=== PATIENT | male | born 1995 | race Caucasian/White ===

== ENCOUNTER 2018-05-21 15:29 | Observation (INO) | payer OTHER ==
[2018-05-21] MEDS ORDERED: ROPIVACAINE 0.5 % 30 ML VIAL (17:15)
[2018-05-21] MEDS ORDERED: MIDAZOLAM 1 MG/ML 2 ML INJ (17:17)
[2018-05-21] MEDS ORDERED: PROPOFOL 20 ML (17:41)
[2018-05-21] MEDS: POLYMYXIN/BACITRACIN 1L IRRIG (18:35)
[2018-05-21] MEDS ORDERED: DEXAMETHASONE 4 MG/ML 5 ML INJ (18:37)
[2018-05-21] MEDS ORDERED: ONDANSETRON 4 MG INJ (18:38)
[2018-05-21] MEDS ORDERED: FENTAnyl 50 MCG/ML VIAL (20:43)
[2018-05-21] MEDS ORDERED: LABETALOL HCL 20MG INJ (21:02)
[2018-05-21] MEDS ORDERED: GLYCOPYRROLATE 0.4 MG INJ (21:59)
[2018-05-21] MEDS ORDERED: NEOSTIGMINE 3 MG/3 ML SYRINGE (21:59)
[2018-05-21] MEDS ORDERED: CEFAZOLIN 1 GM INJ (21:59)
[2018-05-21] MEDS ORDERED: KETOROLAC 30 MG INJ (22:12)
[2018-05-21] MEDS: POVIDONE IODINE 10% 28.4 GM OINT (22:25)
[2018-05-21] MEDS: ROPIVACAINE 0.5 % 30 ML VIAL (22:25)
[2018-05-21] MEDS ORDERED: HYDROmorphONE 0.2 MG/ML PCA (22:51)
[2018-05-21] MEDS: METOCLOPRAMIDE 10 MG INJ IV (22:55)
[2018-05-21] MEDS: FENTAnyl 50 MCG/ML VIAL IV (22:56)
[2018-05-21] MEDS ORDERED: MEPERIDINE 25 MG INJ IV (23:00)
[2018-05-21] MEDS ORDERED: KETOROLAC 30 MG INJ IV (23:00)
[2018-05-21] MEDS ORDERED: BISACODYL 10 MG SUPP PR (23:00)
[2018-05-21] MEDS ORDERED: HYDROmorphONE 1 MG/5 ML IV SYRINGE IV ×3 (23:00)
[2018-05-21] MEDS ORDERED: CEFAZOLIN 1 GM/50 ML (PMX) 50 ML IVPB (23:00)
[2018-05-21] MEDS ORDERED: OXYCODONE/ACETAMINOPHEN (5/325) TAB PO ×2 (23:00)
[2018-05-21] MEDS ORDERED: ALBUTEROL 0.083% (NEB) 2.5 MG/3 ML AMP HHN (23:00)
[2018-05-21] MEDS ORDERED: LABETALOL HCL 20MG INJ IV (23:00)
[2018-05-21] MEDS ORDERED: DIPHENHYDRAMINE 25 MG CAP PO (23:00)
[2018-05-21] MEDS ORDERED: DIPHENHYDRAMINE 50 MG INJ IV (23:00)
[2018-05-21] MEDS ORDERED: hydrALAzine 20 MG INJ IV (23:00)
[2018-05-21] MEDS ORDERED: EPHEDrine SULFATE 50 MG/5 ML SYG IV (23:00)
[2018-05-21] MEDS ORDERED: FENTAnyl 50 MCG/ML VIAL IV ×2 (23:00)
[2018-05-21] MEDS ORDERED: MIDAZOLAM 1 MG/ML 2 ML INJ IV (23:00)
[2018-05-21] MEDS ORDERED: ONDANSETRON 4 MG INJ IV (23:00)
[2018-05-21] MEDS: HYDROmorphONE 0.2 MG/ML PCA IV (23:10)
[2018-05-21] MEDS: SOD CHLORIDE 0.9% 1,000 ML IV (23:56)
[2018-05-22] MEDS: CEFAZOLIN 1 GM/50 ML (PMX) 50 ML IVPB ×2 (05:49→13:05)
[2018-05-22] MEDS: SOD CHLORIDE 0.9% 1,000 ML IV (08:35)
[2018-05-22] MEDS: SENNA/DOCUSATE NA (8.6MG/50MG) TAB PO (08:48)
[2018-05-22] MEDS: OXYCODONE/ACETAMINOPHEN (5/325) TAB PO (12:27)
[2018-05-22] MEDS: ONDANSETRON 4 MG INJ IV (13:05)
[2018-05-22] MEDS: morphine 10 MG INJ IV (14:33)
[2018-05-23] MEDS ORDERED: MAGNESIUM HYDROXIDE 30ML CUP PO (21:00)
== END 2018-05-22 16:20 | disposition home or self-care (01) ==
LOC: SDS 15:29 → REC 22:44 → MS1 23:40
DX: S82.844D Nondisplaced bimalleolar fracture of right lower leg, subsequent encounter for closed fracture with routine healing (principal); X58.XXXD Exposure to other specified factors, subsequent encounter; M93.271 Osteochondritis dissecans, right ankle and joints of right foot
CPT/HCPCS: 29892; 73610-RT; 97116; 97161

== ENCOUNTER 2018-05-27 08:57 | Emergency (ER) | payer OTHER ==
[2018-05-27 09:33] LABS: ADD MAN DIFF? NO
[2018-05-27 09:34] LABS: BASOPHIL # 0.1 10^3/ul (0.0-0.1); BASOPHILS % 0.6 % (0.0-2.0); EOSINOPHILS # 0.2 10^3/ul (0.0-0.5); HEMATOCRIT 40.8 % (42.0-52.0); HEMOGLOBIN 13.8 g/dl (14.0-18.0); LYMPHOCYTES # 2.3 10^3/ul (0.8-2.9); LYMPHOCYTES % 23.5 % (15.0-51.0); MEAN CORPUSCULAR HEMOGLOBIN 29.8 pg (29.0-33.0); MEAN CORPUSCULAR HGB CONC 33.8 g/dl (32.0-37.0); MEAN CORPUSCULAR VOLUME 88.1 fl (82.0-101.0); MEAN PLATELET VOLUME 9.4 fl (7.4-10.4); MONOCYTE # 0.7 10^3/ul (0.3-0.9); MONOCYTES % 7.2 % (0.0-11.0); NEUTROPHIL # 6.4 10^3/ul (1.6-7.5); NEUTROPHILS % 66.2 % (39.0-77.0); PLATELET COUNT 323 10^3/UL (140-415); RED BLOOD COUNT 4.63 10^6/ul (4.70-6.10); RED CELL DISTRIBUTION WIDTH 11.7 % (11.5-14.5)
[2018-05-27 09:34] LABS: WHITE BLOOD COUNT 9.6 10^3/ul (4.8-10.8)
[2018-05-27 10:12] LABS: ANION GAP 13 (5-13); BLOOD UREA NITROGEN 18 mg/dl (7-20); CALCIUM 10.2 mg/dl (8.4-10.2); CARBON DIOXIDE 25 mmol/L (21-31); CHLORIDE 101 mmol/L (97-110); CREATININE 0.68 mg/dl (0.61-1.24); Estimated GFR > 60 mL/min (>60); GLUCOSE 101 mg/dl (70-220); POTASSIUM 4.1 mmol/L (3.5-5.1); SODIUM 139 mmol/L (135-144)
[2018-05-27 10:24] LABS: TROPONIN-I < 0.012 ng/ml (0.000-0.120)
[2018-05-27] MEDS: SOD CHLORIDE 0.9% 100 ML (10:31)
[2018-05-27] MEDS: IOHEXOL 100 ML (10:32)
== END 2018-05-27 13:41 | disposition home or self-care (01) ==
LOC: E/R 08:57
DX: R07.9 Chest pain, unspecified (principal); F17.210 Nicotine dependence, cigarettes, uncomplicated
CPT/HCPCS: 36415; 71045; 71275; 80048; 84484; 85025; 93005; 93971; 99285-25